=== PATIENT | female | born 1975 | race Caucasian/White ===

== ENCOUNTER 2025-01-16 21:08 | Emergency (ER) | payer OTHER, SELFPAY ==
[2025-01-16 21:23] VITALS: BP 116/71
[2025-01-16 21:48] LABS: Hematocrit 38.3 % (37.0-47.0); Hemoglobin 12.9 g/dL (12.0-16.0); Mean Corp Hgb Conc. 33.7 g/dL (33.0-37.0); Mean Corpuscular Volume 88.9 fL (81.0-99.0); Nucleated Red Blood Cells % 0 %; Platelet Count 252 10^3/uL (130-400); Red Cell Dist. Width 12.0 % (11.5-14.5)
[2025-01-16 22:01] LABS: ALT (SGPT) 18 U/L (0-35); AST (SGOT) 25 U/L (14-36); Albumin 4.2 g/dl (3.5-5.0); Alkaline Phosphatase 77 U/L (38-126); Blood Urea Nitrogen 11 mg/dl (7-17); Calcium 9.2 mg/dl (8.4-10.2); Carbon Dioxide 33 mmol/L (22-30); Chloride 105 mmol/L (98-107); Glucose 95 mg/dl (70-99); Lipase 111 U/L (23-300); Potassium 3.8 mmol/L (3.5-5.1); Sodium 142 mmol/L (135-145); Total Protein 7.0 g/dl (6.3-8.2); eGFR > 60.00
[2025-01-16 23:29] VITALS: BP 121/76
[2025-01-16 23:30] VITALS: BMI 39.2
[2025-01-17] VITALS: BP 102/65
[2025-01-17 01:00] VITALS: BP 103/65
--- NOTE | 2025-01-17 01:21 | ED.GENMED ---
History of Present Illness
General
Chief Complaint: Abdominal Pain
Source: patient
Exam Limitations: none
Time Seen by Provider: 01/17/25 01:07
Nursing documentation reviewed up to this point in time: agreed with
History of Present Illness
History of Present Illness:
Note:
CHIEF COMPLAINT(S)
Right-sided abdominal discomfort
HISTORY OF PRESENT ILLNESS
The patient is a 49-year-old female with a pmh of migraine headaches, who presents with right-sided abdominal discomfort that has been persistent for a few months and worsened over the past week. She reports an episode of uncontrolled diarrhea
approximately one week ago, followed by vomiting. The patient is getting a routine colonoscopy done next week and called her colorectal physician regarding the symptoms and her colorectal doctor was concerned that patient may be having a possible
bowel obstruction. Patient has had multiple abdominal surgeries in the past. Patient reports that the last time she had a bowel movement was 1 week ago but she reports that this has been a new normal for her the past 3 months, she has take MiraLAX
daily.
The patient describes feeling bloated for the past three months and reports a new sensation of constant fullness in the stomach even before eating. The abdominal pain is associated with back pain and is described as feeling like a rock-hard area at
times. She has a history of nausea and is currently experiencing it. She denies any fevers or chills. There is nothing that she can compare the pain to in the past. She denies any dysuria, hematuria.
ADDITIONAL HISTORY OBTAINED FROM SOURCES OTHER THAN THE PATIENT
According to the colorectal doctor, who communicated with the patient, there is a concern for bowel obstruction, prompting the recommendation for imaging and delaying the upcoming colonoscopy.
ALLERGIES
Patient denies any allergies to any medication and denies any allergies to narcotic pain medications. Patient reports that with her upcoming colonoscopy she cannot take NSAIDs. Patient reports that Tylenol does not help. Will give small dose of
morphine.
CHRONIC MEDICAL CONDITIONS SIGNIFICANTLY AFFECTING CARE
The patient has a history of a hiatal hernia.
PAST SURGICAL HISTORY
The patient has undergone a section, tubal ligation, partial hysterectomy, complete hysterectomy, and cholecystectomy.
REVIEW OF SYSTEMS
See HPI
PHYSICAL EXAM
General: Patient is well appearing and in no acute distress; non-toxic
Skin: Warm and dry, no rashes or lesions
Head: Normocephalic, atraumatic
Eyes: Sclera non-icteric. EOMs intact.
Cardiac: Regular rate and rhythm, no murmurs
Peripheral Vascular: No lower extremity swelling or edema
Pulm: Normal respiratory effort, no wheezes, rales, or rhonchi
Abdomen: Generalized abdominal tenderness to palpation, normoactive bowel sounds
Neuro: CN II-XII intact, no focal neurologic deficits.
Psychiatric: Appropriate mood and affect.
PLAN
1. Obtain a computed tomography scan to evaluate for possible bowel obstruction.
2. Administer medication for nausea relief.
3. Consider pain management options that avoid nonsteroidal anti-inflammatory drugs due to bleeding risk and upcoming colonoscopy, possibly explore alternatives such as acetaminophen or small dose of morphine.
4. Perform urinalysis to rule out any urinary tract infection.
5. Ensure the patient can proceed with a planned colonoscopy following assessment for obstruction.
DIFFERENTIAL DIAGNOSIS
The Differential Diagnosis includes, in no particular order and is not limited to:
1. Bowel obstruction
2. Constipation
3. Irritable bowel syndrome
4. Hiatal hernia complications
5. Diverticulitis
6. Gastroesophageal reflux disease
7. Abdominal adhesions
8. Infectious gastroenteritis
9. Strangulated hernia
10. Chronic appendicitis
CHART REVIEW
Reviewed operative report from 04/15/2012, patient seen for pelvic pain, had lysis of adhesions and right salpingo-oophorectomy
MDM/DISPOSITION
The patient is a 49-year-old female with a pmh of migraine headaches, who presents with right-sided abdominal discomfort that has been persistent for a few months and worsened over the past week. She reports an episode of uncontrolled diarrhea
approximately one week ago, followed by vomiting. The patient is getting a routine colonoscopy done next week and called her colorectal physician regarding the symptoms and her colorectal doctor was concerned that patient may be having a possible
bowel obstruction. On physical exam, patient is well-appearing in no acute distress she is minimal abdominal tenderness on exam, she is afebrile. Her CBC and CMP are unremarkable. Her urinalysis is not concerning for infection especially in light
of no urinary symptoms and significant amount of squamous epithelial cells, will await urine culture. Her CT scan shows no evidence of small bowel obstruction, no concern for acute intra-abdominal process. Suspect chronic abdominal pain related to
chronic constipation. Patient feels well enough to go home. Patient is stable to follow-up with her scheduled colonoscopy next week. Patient educated on strict return precautions. Patient stable for discharge.
Review of Systems
Review of Systems
All Other Systems: ROS reviewed and negative except as documented in HPI and ROS
Phy Exam
Physical Exam
Physical Exam:
see hpi
Course
Orders/Labs/Results
Orders:
Orders
01/16/25 21:35
Complete Blood Count/With Diff Urgent
Comprehensive Metabolic Panel Urgent
Lipase Urgent
01/17/25 01:35
0.9% Sodium Chloride 500 ml [Nss] 500 ml IV BOLUS
01/17/25 01:36
Morphine Sulfate 2 mg IV NOW STA
Ondansetron Injectable [Zofran] 4 mg IV NOW STA
01/17/25 01:50
CT Abd/pelvis W Iv Cont Urgent
Comment:
Reason For Exam: right sided abdominal pain
01/17/25 01:59
Urinalysis Reflex To Culture Urgent
Date Specimen was Collected: 01/17/25
Time Specimen was Collected: 01:43
Urine Microscopic Reflex Cult Urgent
Urine Culture Urgent
TODD Source: U
Specimen Description:
Date Specimen was Collected: 01/17/25
Time Specimen was Collected: 01:43
01/17/25 03:40
Acetaminophen [Tylenol] 1,000 mg PO NOW STA
Abnormal Lab Results
01/16/25 01/17/25
21:35 01:59
WBC 3.9 L 10^3/uL
(4.8-10.8)
Carbon Dioxide 33 H mmol/L
(22-30)
Leukocyte Esterase Rfl 1+ A
(Negative)
Urine WBC (Reflex) 16-20 A /HPF
(0-5)
Urine Bacteria (Reflex) Moderate A
(Negative)
01/16/25 21:35
01/16/25 21:35
Vital Signs
Initial and Last Documented VS:
Initial Vital Signs
Temp Pulse Resp BP Pulse Ox
98.7 F 67 18 116/71 96
01/16/25 21:23 01/16/25 21:23 01/16/25 21:23 01/16/25 21:23 01/16/25 21:23
Last Documented Vital Signs
Temp Pulse Resp BP Pulse Ox
98.7 F 67 18 107/66 93
01/16/25 21:23 01/16/25 21:23 01/16/25 21:23 01/17/25 02:00 01/17/25 03:30
*Pulse Oximetry
SaO2: 98
Oxygen Mode of Delivery: Room air
Patient hypoxic: no
*Critical Care Note
Total Time (30-74mins, 75-104mins- exclusive of procedures): Not Applicable
Update Note
Update Note:
Patient reports that she cannot take NSAIDs because she is getting a colonoscopy next week. She does admit to taking one dose of advil because the pain became so intense.
ED Attending Note
-
Portions of this chart may have been created with voice recognition software.� Occasional wrong word or��sound alike� substitutions may have occurred due to the inherent limitations of voice recognition software.
Discharge Plan
Departure
Patient Disposition: Home (Routine Discharge)
Date of Disposition: 01/17/25
Time of Disposition: 03:41
Patient with high blood pressure during this ER visit?: No
Condition: Good
Discharge Problem:
Abdominal pain
Instructions: Abdominal Pain
Prescriptions:
No Action
Ibuprofen
1 tab PO PRN (Reason: pain)
Ultram
1 tab PO PRN (Reason: pain)
Referrals:
Carole Gonzalez MD [Family Provider, Internal Medicine]
Savana Mccain PA-C [Specified Professional Personl, ColoRectal] - Call in 1-3 days for appt
Activity Restrictions/Additional Instructions:
Please follow up with your colorectal physician and your colonoscopy next week.
Please continue your regimen of MiraLAX.
PLEASE RETURN EMERGENCY DEPARTMENT SHOULD YOU DEVELOP ACUTE WORSENING OR SYMPTOMS, RECTAL BLEEDING, DARK TARRY STOOLS, FEVERS OR CHILLS, INTRACTABLE NAUSEA OR VOMITING, LIGHTHEADEDNESS, DIZZINESS, CHEST PAIN, SHORTNESS OF BREATH, OR ANY OTHER SIGNS
OR SYMPTOMS WORRISOME TO YOU.
Interventions
Interventions:
*Risk Screen - Suicide Last Done: 01/16/25 21:23
*General Assessment Last Done: 01/16/25 21:23
*Neglect/Abuse Screening Last Done: 01/16/25 21:23
*ED- Fall Risk Assessment Last Done: 01/16/25 23:30
*ED COVID-19 Vaccine History Last Done: 01/16/25 23:30
*Nursing Disposition Last Done: 01/17/25 04:02
JA-Bqjmbb-Lcxjcvijnn Assessment Last Done: 01/16/25 23:30
Discharge Date and Time
Discharge Date/Time: 01/17/25 04:04
Print Language: [place]
[2025-01-17] MEDS: NSS 500 IV (01:50)
[2025-01-17] MEDS: MORPHINE SULFATE 2 MG IV (01:51)
[2025-01-17] MEDS: ZOFRAN 4 MG IV (01:51)
[2025-01-17 02:00] VITALS: BP 107/66
[2025-01-17 02:11] LABS: Urine Character Clear (Clear)
[2025-01-17 02:40] LABS: Urine Squamous Cell >30 /LPF (Few); Urine Urothelial Cell >30 /LPF (FEW)
[2025-01-17 02:41] LABS: Urine Red Blood Cell 0-2 /HPF (0-2); Urine White Cell 16-20 /HPF (0-5)
[2025-01-17] MEDS: TYLENOL 1000 MG PO (03:52)
== END 2025-01-17 04:04 | disposition home or self-care (01) ==
LOC: EMR 21:08
PROVIDERS: Physician Assistant; Student in an Organized Health Care Education/Training Program; EMERGENCY PHYSICIAN Emergency Medicine; FAMILY PHYSICIAN Emergency Medicine
DX: R10.9 Unspecified abdominal pain (principal)
CPT/HCPCS: 99285; 96374; 96375; 96361; 74177; 80053; 81003; 81015; 83690; 85025; 87086; Q9967

== ENCOUNTER 2025-01-25 06:16 | Day surgery (SDC) | payer OTHER, SELFPAY | END 2025-01-25 13:25 | disposition home or self-care (01) | LOC: GI 06:16 | PROVIDERS: ATTENDING PHYSICIAN Surgery; FAMILY PHYSICIAN Nurse Practitioner Family | DX: Z12.11 Encounter for screening for malignant neoplasm of colon (principal); K64.9 Unspecified hemorrhoids | CPT/HCPCS: G0121 ==

== ENCOUNTER → 2025-04-10 01:00 | Outpatient (REF) | payer OTHER, SELFPAY | LOC: CLAB 01:00 | PROVIDERS: ATTENDING PHYSICIAN Surgery | DX: K64.2 Third degree hemorrhoids (principal); K64.4 Residual hemorrhoidal skin tags | CPT/HCPCS: 88304 ==